=== PATIENT | male | born 1985 | race American Indian/Alaskan Native ===

== ENCOUNTER 2019-02-05 00:05 | Emergency (ER) | payer SELFPAY ==
--- NOTE | 2019-02-05 01:01 | Emergency Department Report ---
ED Psych HPI - General Chief Complaint: Psych Stated Complaint: EVALUATION, WITHOUT MEDS FOR 6 MONTHS Time Seen by Provider: 02/05/19 00:49 Source: patient Mode of arrival: Ambulatory - History of Present Illness Initial Comments: 33 yo M with hx of bipolar d/o, schizophrenia, presents to ED for mental health evaluation. Pt is accompanied by mother who is concerned about recent change in pt's behavior. Mother reports pt has been having mood swings. Pt goes from laughing uncontrollably, to yesterday slapping playing cards out of another players hand and becoming angry. Today, mother states pt went outside with only his underwear. States he threw his phone out of the car window, and then stated he was told to do so. Patient has been off of his psych meds x 6 months. Pt states he stopped taking them b/c he didn't need them. Pt denies hallucinations, SI, HI. He reports marijuana use. -: week(s) (1) History of same: Yes Quality: getting worse Improves With: none Worsens With: none Context: recent drug abuse, not taking psychiatric Associated Symptoms: denies other symptoms Treatments Prior to Arrival: none - Related Data Allergies Allergy/AdvReac Type Severity Reaction Status Date / Time No Known Allergies Allergy Verified 02/21/16 02:21 ED Review of Systems ROS: Stated complaint: EVALUATION, WITHOUT MEDS FOR 6 MONTHS Other details as noted in HPI Comment: All other systems reviewed and negative Psychiatric: denies: depression, auditory hallucinations, visual hallucinations, homicidal thoughts, suicidal thoughts ED Past Medical Hx - Past Medical History Previous Medical History?: Yes Hx Psychiatric Treatment: Yes (BIPOLAR/SCHIZO) - Surgical History Past Surgical History?: No - Social History Smoking Status: Never Smoker Substance Use Type: Alcohol, Marijuana ED Physical Exam - General Limitations: No Limitations General appearance: alert, in no apparent distress - Head Head exam: Present: atraumatic, normocephalic - Eye Eye exam: Present: normal appearance, PERRL, EOMI - ENT ENT exam: Present: mucous membranes moist - Neck Neck exam: Present: normal inspection - Respiratory Respiratory exam: Present: normal lung sounds bilaterally. Absent: respiratory distress - Cardiovascular Cardiovascular Exam: Present: regular rate, normal rhythm - GI/Abdominal GI/Abdominal exam: Absent: distended - Extremities Exam Extremities exam: Present: normal inspection - Neurological Exam Neurological exam: Present: alert, oriented X3, CN II-XII intact. Absent: motor sensory deficit - Psychiatric Psychiatric exam: Present: normal affect, normal mood - Skin Skin exam: Present: warm, dry, intact, normal color ED Course Vital Signs 02/05/19 00:45 Temperature 98.7 F Pulse Rate 53 L Respiratory 18 Rate Blood Pressure 125/75 [Right] O2 Sat by Pulse 97 Oximetry ED Medical Decision Making - Lab Data Result diagrams: 02/05/19 00:53 02/05/19 00:53 - Medical Decision Making Pt seen and evaluated by mental health assorter. Does not meet inpatient criteria at this time. Outpt resources given. Critical care attestation.: If time is entered above; I have spent that time in minutes in the direct care of this critically ill patient, excluding procedure time. ED Disposition Clinical Impression: Mood disorder Disposition: DC-01 TO HOME OR SELFCARE Is pt being admited?: No Condition: Stable Instructions: Mood Disorders (ED) Referrals: [facility] [Outside] - 3-5 Days Forms: Accompanied Note Time of Disposition: 03:15
[2019-02-05 01:11] LABS: Basophils % (Auto) 0.6 % (0.0-1.8); Eosinophils % (Auto) 0.5 % (0.0-4.3); Hematocrit 44.3 % (35.5-45.6); Lymphocytes # (Auto) 1.4 K/mm3 (1.2-5.4); Lymphocytes % (Auto) 20.4 % (13.4-35.0); Mean Corpuscular HGB Conc 34 % (32-34); Mean Corpuscular Volume 97 fl (84-94); Monocytes # (Auto) 0.5 K/mm3 (0.0-0.8); Monocytes % (Auto) 7.5 % (0.0-7.3); Platelet Count 222 K/mm3 (140-440); Red Blood Count 4.55 M/mm3 (3.65-5.03); Red Cell Distribution Width 12.5 % (13.2-15.2)
[2019-02-05 01:17] VITALS: BP 125/75
[2019-02-05 01:22] LABS: BUN/Creatinine Ratio 6; Blood Urea Nitrogen 6 mg/dL (9-20); Calcium 8.8 mg/dL (8.4-10.2); Hemolysis Index 10
[2019-02-05 02:12] LABS: Amphetamine Screen,Urine PRESUMPTIVE NEGATIVE; Benzodiazepines Screen,Urine PRESUMPTIVE NEGATIVE; Cocaine Screen,Urine PRESUMPTIVE NEGATIVE; Methadone Screen,Urine PRESUMPTIVE NEGATIVE; Opiate Screen,Urine PRESUMPTIVE NEGATIVE
[2019-02-05 02:35] LABS: Cannabinoid Screen,Urine PRESUMPTIVE POSITIVE
[2019-02-05 03:29] LABS: Bilirubin,Urine NEG (Negative); Blood,Urine NEG (Negative); Calcium Oxalate Crystals,Urine 1+; Color,Urine Yellow (Yellow); Mucus,Urine FEW /HPF; Protein,Urine <15 mg/dL mg/dL (Negative)
== END 2019-02-05 03:32 | disposition home or self-care (01) ==
LOC: ED 00:05
DX: F39 Unspecified mood [affective] disorder (principal); F31.9 Bipolar disorder, unspecified; F12.10 Cannabis abuse, uncomplicated
CPT/HCPCS: 36415; 80048; 80307; 80320; 81001; 85025; 99284; G0480